=== PATIENT | male | born 1990 | race Two or more races ===

== ENCOUNTER 2018-03-22 20:47 | Emergency (ER) | payer OTHER ==
[2018-03-22 21:09] VITALS: RESP 20
--- NOTE | 2018-03-22 21:27 | XR ---
EXAMINATION TYPE: XR chest 2V DATE OF EXAM: 03/22/2018 COMPARISON: NONE HISTORY: Rib pain TECHNIQUE: Frontal and lateral views of the chest are obtained. FINDINGS: Heart and mediastinum are normal. Lungs are clear. Diaphragm is normal. Bony thorax is int act. IMPRESSION: Normal chest, no rib fracture seen.
--- NOTE | 2018-03-22 21:52 | ED ---
URI HPI - General Chief Complaint: Upper Respiratory Infection Stated Complaint: abd pain Time Seen by Provider: 03/22/18 21:06 Source: patient Mode of arrival: ambulatory Limitations: no limitations - History of Present Illness Initial Comments: This patient is a 27-year-old man who presents to be evaluated for a cough which is been going on for between 1 and 2 weeks, left-sided rib pain, and myalgias. Patient states that the person came on more than myalgias, which was followed by a cough, large nonproductive though occasionally with some dark yellow sputum, and then this was followed by the rib pains associated with cough. The pains are moderate, they get worse when he coughs, with certain movements and with pressing on the ribs. Patient has not noted fever or chills. No dyspnea. MD Complaint: cough, nasal congestion -: days(s) Severity: moderate Quality: aching Consistency: constant Improves With: nothing Worsens With: other - Related Data Home Medications Medication Instructions Recorded Confirmed Albuterol Inhaler [Ventolin Hfa 1 - 2 puff INHALATION RT-Q6H PRN 03/22/18 Inhaler] Budesonide/Formoterol Fumarate 1 puff INHALATION RT-BID PRN 03/22/18 03/22/18 [Symbicort 80-4.5 Mcg Inhaler] Previous Rx's Medication Instructions Recorded Albuterol Inhaler [Ventolin Hfa 1 - 2 puff INHALATION Q6HR PRN #1 03/22/18 Inhaler] inhaler Azithromycin [Zithromax Z-pack] 250 mg PO DIRECTED #6 tab 03/22/18 Promethazine 6.25MG/5Ml [Phenergan 5 ml PO Q4HR PRN #120 ml 03/22/18 Syrup] predniSONE 20 mg PO BID #8 tab 03/22/18 Allergies Allergy/AdvReac Type Severity Reaction Status Date / Time No Known Allergies Allergy Verified 03/22/18 21:08 Review of Systems ROS Statement: Those systems with pertinent positive or pertinent negative responses have been documented in the HPI. ROS Other: All systems not noted in ROS Statement are negative. Constitutional: Denies: fever, chills, weakness Respiratory: Reports: as per HPI, cough. Denies: dyspnea, wheezes, hemoptysis Cardiovascular: Reports: as per HPI, chest pain. Denies: palpitations, dyspnea on exertion, orthopnea Gastrointestinal: Denies: abdominal pain, nausea, vomiting, diarrhea Genitourinary: Denies: dysuria, hematuria Musculoskeletal: Reports: myalgia. Denies: back pain Skin: Denies: rash Neurological: Denies: headache, weakness, numbness, paresthesias Past Medical History Past Medical History: Asthma Additional Past Medical History / Comment(s): hep C History of Any Multi-Drug Resistant Organisms: None Reported Past Surgical History: Appendectomy Past Psychological History: No Psychological Hx Reported Smoking Status: Never smoker Past Alcohol Use History: None Reported Past Drug Use History: Marijuana General Exam Limitations: no limitations General appearance: alert, in no apparent distress Head exam: Present: atraumatic, normocephalic Eye exam: Present: normal appearance. Absent: scleral icterus, conjunctival injection ENT exam: Present: normal oropharynx Neck exam: Present: full ROM. Absent: lymphadenopathy Respiratory exam: Present: wheezes (Trace expiratory wheeze), chest wall tenderness. Absent: respiratory distress, rales, rhonchi, stridor, accessory muscle use, decreased breath sounds, prolonged expiratory Cardiovascular Exam: Present: regular rate, normal rhythm, normal heart sounds. Absent: systolic murmur, diastolic murmur, rubs, gallop GI/Abdominal exam: Present: soft. Absent: distended, tenderness, guarding, rebound, rigid, mass Extremities exam: Present: normal inspection, normal capillary refill. Absent: pedal edema, calf tenderness Back exam: Present: normal inspection. Absent: CVA tenderness (R), CVA tenderness (L) Neurological exam: Present: alert Skin exam: Present: warm, dry, intact, normal color. Absent: rash Course Vital Signs 03/22/18 03/22/18 20:50 21:01 Temperature 97.9 F Pulse Rate 81 Respiratory 18 20 Rate Blood Pressure 138/69 O2 Sat by Pulse 98 Oximetry Disposition Clinical Impression: Bronchitis Disposition: HOME SELF-CARE Condition: Good Instructions: Acute Bronchitis (ED) Prescriptions: Albuterol Inhaler [Ventolin Hfa Inhaler] 1 - 2 puff INHALATION Q6HR PRN #1 inhaler PRN Reason: Wheezing Azithromycin [Zithromax Z-pack] 250 mg PO DIRECTED #6 tab predniSONE 20 mg PO BID #8 tab Promethazine 6.25MG/5Ml [Phenergan Syrup] 5 ml PO Q4HR PRN #120 ml PRN Reason: Cough Is patient prescribed a controlled substance at d/c from ED?: No Referrals: Jamil Archibald MD [Primary Care Provider] - 1-2 days
[2018-03-22] MEDS ORDERED: IBUPROFEN 400 MG TAB PO STA (22:05)
[2018-03-22] MEDS ORDERED: predniSONE 20 MG TAB PO STA (22:05)
[2018-03-22 22:41] VITALS: BP 114/71; PULSE 78; TEMP 97.8
== END 2018-03-22 22:40 | disposition home or self-care (01) ==
LOC: EC 20:47
DX: J45.909 Unspecified asthma, uncomplicated (principal); R07.81 Pleurodynia; Z86.19 Personal history of other infectious and parasitic diseases
CPT/HCPCS: 71046; 99284; J7512

== ENCOUNTER 2018-03-27 16:46 | Emergency (ER) | payer OTHER ==
[2018-03-27 17:35] LABS: Appearance,Urine Turbid (Clear); Bacteria,Urine Rare /hpf; Bilirubin,Urine Negative (Negative); Blood,Urine Negative (Negative); Budding Yeast,Urine Many /hpf; Color,Urine Yellow; Glucose,Urine (UA) Negative (Negative); Ketones,Urine Negative (Negative); Leukocyte Esterase,Urine Negative (Negative); Mucus,Urine Rare /hpf; Nitrite,Urine Negative (Negative); PH, Urine 7.5 (5.0-8.0); Protein,Urine Negative (Negative); Specific Gravity,Urine 1.017 (1.001-1.035); Urobilinogen,Urine <2.0 mg/dL (<2.0); WBC,Urine 7 /hpf (0-5)
[2018-03-27] MEDS ORDERED: SODIUM CHLORIDE 0.9% 1,000 ML IV STA (17:40)
--- NOTE | 2018-03-27 18:43 | ED ---
General Adult HPI - General Chief complaint: Back Pain/Injury Stated complaint: kidney problem Time Seen by Provider: 03/27/18 17:32 Source: family, RN notes reviewed Mode of arrival: ambulatory Limitations: no limitations - History of Present Illness Initial comments: This is a 27-year-old male presents emergency department to complaint of right- sided flank pain. Patient states that has increased last few days. Patient states that he has multiple symptoms that is concerned may related to his hepatitis C. Patient is scheduled see a GI physician and infectious disease doctor for treatment for sepsis. Patient states that he did not use IV drug user states this is from Activity. Patient States That He Has Noticed Dark Urine States Has Been Burning with Urination. He Denies Any Hematuria. Patient Also States That He's Noticed Change in His Bowel Habits and States That His Stool Has Been Tarry in Nature. Patient Denies Any Nausea Vomiting. Denies Any Chest Pain or Shortness Breath. States Does Appear Fatigued and Run down. He States the Pain That He Hasn't His Right Side Does Not Seem to Be Related to Muscle Skeletal Pain. 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 - Related Data Home Medications Medication Instructions Recorded Confirmed Albuterol Inhaler [Ventolin Hfa 1 - 2 puff INHALATION RT-Q6H PRN 03/22/18 Inhaler] Budesonide/Formoterol Fumarate 1 puff INHALATION RT-BID PRN 03/22/18 03/22/18 [Symbicort 80-4.5 Mcg Inhaler] Previous Rx's Medication Instructions Recorded Albuterol Inhaler [Ventolin Hfa 1 - 2 puff INHALATION Q6HR PRN #1 03/22/18 Inhaler] inhaler Azithromycin [Zithromax Z-pack] 250 mg PO DIRECTED #6 tab 03/22/18 Promethazine 6.25MG/5Ml [Phenergan 5 ml PO Q4HR PRN #120 ml 03/22/18 Syrup] predniSONE 20 mg PO BID #8 tab 03/22/18 Ciprofloxacin HCl [Cipro] 500 mg PO Q12HR #14 tablet 03/27/18 Allergies Allergy/AdvReac Type Severity Reaction Status Date / Time No Known Allergies Allergy Verified 03/27/18 16:58 Review of Systems ROS Statement: Those systems with pertinent positive or pertinent negative responses have been documented in the HPI. ROS Other: All systems not noted in ROS Statement are negative. Past Medical History Past Medical History: Asthma Additional Past Medical History / Comment(s): hep C History of Any Multi-Drug Resistant Organisms: None Reported Past Surgical History: Appendectomy Past Psychological History: No Psychological Hx Reported Smoking Status: Never smoker Past Alcohol Use History: None Reported Past Drug Use History: Marijuana General Exam Limitations: no limitations General appearance: alert, in no apparent distress Head exam: Present: atraumatic, normocephalic, normal inspection Neck exam: Present: normal inspection, full ROM. Absent: tenderness, meningismus, lymphadenopathy Respiratory exam: Present: normal lung sounds bilaterally. Absent: respiratory distress, wheezes, rales, rhonchi, stridor Cardiovascular Exam: Present: regular rate, normal rhythm, normal heart sounds. Absent: systolic murmur, diastolic murmur, rubs, gallop, clicks GI/Abdominal exam: Present: soft, tenderness (Right upper quadrant moderate), normal bowel sounds. Absent: distended, guarding, rebound, rigid Back exam: Present: normal inspection, full ROM. Absent: tenderness, CVA tenderness (R), CVA tenderness (L), paraspinal tenderness, vertebral tenderness Neurological exam: Present: alert, oriented X3, CN II-XII intact, reflexes normal. Absent: motor sensory deficit Skin exam: Present: warm, dry, intact, normal color. Absent: rash Course Vital Signs 03/27/18 16:55 Temperature 98.0 F Pulse Rate 90 Respiratory 18 Rate Blood Pressure 118/76 O2 Sat by Pulse 97 Oximetry Medical Decision Making - Medical Decision Making 27-year-old male present emergency from for multiple complaints. Patient's found a urinary tract infection. Patient had a urine culture, GC and chlamydia testing. Patient does have elevated liver enzymes secondary to his hepatitis see diagnosis. He has close follow-up with GI and infectious disease. We discuss return parameters. - Lab Data Result diagrams: 03/27/18 17:59 03/27/18 17:59 Lab Results 03/27/18 03/27/18 03/27/18 Range/Units 17:11 17:59 17:59 WBC 6.4 (3.8-10.6) k/uL RBC 5.32 (4.30-5.90) m/uL Hgb 15.2 (13.0-17.5) gm/dL Hct 46.0 (39.0-53.0) % MCV 86.6 (80.0-100.0) fL MCH 28.5 (25.0-35.0) pg MCHC 33.0 (31.0-37.0) g/dL RDW 13.3 (11.5-15.5) % Plt Count 247 (150-450) k/uL Neutrophils % 58 % Lymphocytes % 29 % Monocytes % 5 % Eosinophils % 5 % Basophils % 0 % Neutrophils # 3.7 (1.3-7.7) k/uL Lymphocytes # 1.9 (1.0-4.8) k/uL Monocytes # 0.3 (0-1.0) k/uL Eosinophils # 0.3 (0-0.7) k/uL Basophils # 0.0 (0-0.2) k/uL PT (9.0-12.0) sec INR (<1.2) APTT (22.0-30.0) sec Sodium 140 (137-145) mmol/L Potassium 4.4 (3.5-5.1) mmol/L Chloride 105 (98-107) mmol/L Carbon Dioxide 25 (22-30) mmol/L Anion Gap 10 mmol/L BUN 16 (9-20) mg/dL Creatinine 0.88 (0.66-1.25) mg/dL Est GFR (CKD-EPI)AfAm >90 (>60 ml/min/1.73 sqM) Est GFR (CKD-EPI)NonAf >90 (>60 ml/min/1.73 sqM) Glucose 98 (74-99) mg/dL Calcium 9.8 (8.4-10.2) mg/dL Total Bilirubin 0.7 (0.2-1.3) mg/dL AST 69 H (17-59) U/L ALT 116 H (21-72) U/L Alkaline Phosphatase 42 (38-126) U/L Total Protein 7.9 (6.3-8.2) g/dL Albumin 4.5 (3.5-5.0) g/dL Amylase 67 (30-110) U/L Lipase 47 (23-300) U/L Urine Color Yellow Urine Appearance Turbid (Clear) Urine pH 7.5 (5.0-8.0) Ur Specific [place] 1.017 (1.001-1.035) Urine Protein Negative (Negative) Urine Glucose (UA) Negative (Negative) Urine Ketones Negative (Negative) Urine Blood Negative (Negative) Urine Nitrite Negative (Negative) Urine Bilirubin Negative (Negative) Urine Urobilinogen <2.0 (<2.0) mg/dL Ur Leukocyte Esterase Negative (Negative) Urine WBC 7 H (0-5) /hpf Urine WBC Clumps Few H (None) /hpf Urine Bacteria Rare H (None) /hpf Urine Mucus Rare H (None) /hpf Urine Yeast (Budding) Many H (None) /hpf Stool Occult Blood (Negative) 03/27/18 03/27/18 Range/Units 17:59 17:59 WBC (3.8-10.6) k/uL RBC (4.30-5.90) m/uL Hgb (13.0-17.5) gm/dL Hct (39.0-53.0) % MCV (80.0-100.0) fL MCH (25.0-35.0) pg MCHC (31.0-37.0) g/dL RDW (11.5-15.5) % Plt Count (150-450) k/uL Neutrophils % % Lymphocytes % % Monocytes % % Eosinophils % % Basophils % % Neutrophils # (1.3-7.7) k/uL Lymphocytes # (1.0-4.8) k/uL Monocytes # (0-1.0) k/uL Eosinophils # (0-0.7) k/uL Basophils # (0-0.2) k/uL PT 10.4 (9.0-12.0) sec INR 1.1 (<1.2) APTT 23.2 (22.0-30.0) sec Sodium (137-145) mmol/L Potassium (3.5-5.1) mmol/L Chloride (98-107) mmol/L Carbon Dioxide (22-30) mmol/L Anion Gap mmol/L BUN (9-20) mg/dL Creatinine (0.66-1.25) mg/dL Est GFR (CKD-EPI)AfAm (>60 ml/min/1.73 sqM) Est GFR (CKD-EPI)NonAf (>60 ml/min/1.73 sqM) Glucose (74-99) mg/dL Calcium (8.4-10.2) mg/dL Total Bilirubin (0.2-1.3) mg/dL AST (17-59) U/L ALT (21-72) U/L Alkaline Phosphatase (38-126) U/L Total Protein (6.3-8.2) g/dL Albumin (3.5-5.0) g/dL Amylase (30-110) U/L Lipase (23-300) U/L Urine Color Urine Appearance (Clear) Urine pH (5.0-8.0) Ur Specific [place] (1.001-1.035) Urine Protein (Negative) Urine Glucose (UA) (Negative) Urine Ketones (Negative) Urine Blood (Negative) Urine Nitrite (Negative) Urine Bilirubin (Negative) Urine Urobilinogen (<2.0) mg/dL Ur Leukocyte Esterase (Negative) Urine WBC (0-5) /hpf Urine WBC Clumps (None) /hpf Urine Bacteria (None) /hpf Urine Mucus (None) /hpf Urine Yeast (Budding) (None) /hpf Stool Occult Blood Negative (Negative) Disposition Clinical Impression: Hepatitis C, Flank pain, UTI (urinary tract infection) Disposition: HOME SELF-CARE Condition: Stable Instructions: Urinary Tract Infection in Men (ED) Additional Instructions: Please return to the Emergency Department if symptoms worsen or any other concerns. Prescriptions: Ciprofloxacin HCl [Cipro] 500 mg PO Q12HR #14 tablet Is patient prescribed a controlled substance at d/c from ED?: No Referrals: Jamil Archibald MD [Primary Care Provider] - 1-2 days Time of Disposition: 19:19
[2018-03-27 18:49] LABS: Basophils % (A) 0 %; Eosinophils # (A) 0.3 k/uL (0-0.7); Eosinophils % (A) 5 %; HGB 15.2 gm/dL (13.0-17.5); Lymphocytes # (A) 1.9 k/uL (1.0-4.8); Lymphocytes % (A) 29 %; MCH 28.5 pg (25.0-35.0); MCV 86.6 fL (80.0-100.0); Monocytes # (A) 0.3 k/uL (0-1.0); Monocytes % (A) 5 %; Neutrophils # (A) 3.7 k/uL (1.3-7.7); Neutrophils % (A) 58 %; Platelet Count 247 k/uL (150-450); RBC 5.32 m/uL (4.30-5.90); RDW 13.3 % (11.5-15.5); WBC 6.4 k/uL (3.8-10.6)
[2018-03-27 18:57] LABS: ALT 116 U/L (21-72); AST 69 U/L (17-59); Albumin 4.5 g/dL (3.5-5.0); Alkaline Phosphatase 42 U/L (38-126); Amylase 67 U/L (30-110); Anion Gap 10 mmol/L; Blood Urea Nitrogen 16 mg/dL (9-20); Calcium 9.8 mg/dL (8.4-10.2); Carbon Dioxide 25 mmol/L (22-30); Chloride 105 mmol/L (98-107); Glucose 98 mg/dL (74-99); Lipase 47 U/L (23-300); Potassium 4.4 mmol/L (3.5-5.1); Sodium 140 mmol/L (137-145); Total Bilirubin 0.7 mg/dL (0.2-1.3); Total Protein 7.9 g/dL (6.3-8.2)
[2018-03-27 19:02] LABS: INR 1.1 (<1.2); Partial Thromboplastin Time 23.2 sec (22.0-30.0); Prothrombin Time 10.4 sec (9.0-12.0)
[2018-03-27] MEDS ORDERED: cefTRIAXone 1,000 MG VIAL (IM USE) IM STA (19:14)
[2018-03-27] MEDS ORDERED: AZITHROMYCIN 250 MG TAB PO STA (19:16)
[2018-03-27 19:52] VITALS: BP 121/89; PULSE 84; RESP 17; TEMP 97.9
[2018-03-29 14:06] LABS: C. trachomatis,PCR Negative (Neg,Equiv); Chlamydia trachomatis Source Urine
[2018-03-29 14:39] LABS: N. gonorrhoeae,PCR Negative (Neg,Equiv); Neisseria Source Urine
== END 2018-03-27 19:35 | disposition home or self-care (01) ==
LOC: EC 16:46
DX: B19.20 Unspecified viral hepatitis C without hepatic coma (principal); N39.0 Urinary tract infection, site not specified; J45.909 Unspecified asthma, uncomplicated; Z90.49 Acquired absence of other specified parts of digestive tract
CPT/HCPCS: 36415; 80053; 81001; 82150; 82272; 83690; 85025; 85610; 85730; 87086; 87491; 87591; 96360; 96372; 99283

== ENCOUNTER → 2018-04-10 | Outpatient (CLI) | payer OTHER ==
--- NOTE | 2018-04-11 07:11 | CT ---
EXAMINATION TYPE: CT chest w con DATE OF EXAM: 04/10/2018 COMPARISON: Two-view chest x-ray March 22, 2018 HISTORY: c/o chest pain and pressure X 1 month. hx of asthma. Pleural scarring per order. CT DLP: 228.9 mGycm. Automated Exposure Control for Dose Reduction was Utilized. TECHNIQUE: CT scan of the thorax is performed following with IV Contrast, patient injected with 100 mL of Isovue 300. FINDINGS: LUNGS: The lungs are grossly clear, there is no concerning parenchymal mass or nodule identified. Sli ght motion artifact noted for reference axial image 54. There is no pleural effusion or pneumothorax seen. No significant distortion or fibrosis is present. No suspicious pleural thickening is seen. Th e tracheobronchial tree is patent. MEDIASTINUM: There are no greater than 1 cm hilar or mediastinal lymph nodes. No cardiomegaly or pe ricardial effusion is seen. OTHER: Bilateral gynecomastia is present axial image 30. A 1.2 cm splenule in splenic hilum axial rhianna ge 76 is noted. Within the liver there is 1.2 cm round hyperdense lesion right hepatic lobe axial rhianna ge 79. IMPRESSION: 1. No significant acute or chronic pulmonary process. 2. Incidental 1.2 cm right round hyperdense lesion favoring hemangioma but incompletely characterized on single phase study. Consider liver protocol contrast-enhanced MRI to further evaluate and charact erize.
== END ==
LOC: RADCTMAIN 18:07
PROVIDERS: ATTEND Family Medicine
DX: J94.8 Other specified pleural conditions (principal)
CPT/HCPCS: 71260; Q9967

== ENCOUNTER 2018-06-07 18:39 | Emergency (ER) | payer OTHER ==
[2018-06-07 18:45] VITALS: TEMP 98.1
[2018-06-07] MEDS ORDERED: IPRATROPIUM-ALBUTEROL 3 ML NEB INHALATION STA (18:50)
[2018-06-07] MEDS ORDERED: DEXAMETHASONE SOD PHOSPHATE 10 MG/ML 1 ML VIAL IM STA (18:50)
--- NOTE | 2018-06-07 19:16 | XR ---
EXAMINATION TYPE: XR chest 2V DATE OF EXAM: 06/07/2018 COMPARISON: 03/22/2018 HISTORY: Difficulty breathing TECHNIQUE: Frontal and lateral views of the chest are obtained. FINDINGS: Heart and mediastinum are normal. Lungs are clear. Diaphragm is normal. Bony thorax is int act. IMPRESSION: Normal chest. No change.
--- NOTE | 2018-06-07 19:18 | ED ---
General Adult HPI - General Chief complaint: Shortness of Breath Stated complaint: MIRTHA Time Seen by Provider: 06/07/18 18:46 Source: patient, RN notes reviewed, old records reviewed Mode of arrival: ambulatory Limitations: no limitations - History of Present Illness Initial comments: 27-year-old male presenting for evaluation of cough and dyspnea. Patient's cough has been productive of yellow-brown sputum. He has a known history of asthma and has been out of his albuterol. Symptoms have progressed over the past several days but worse significantly worse today. Patient denies fever or chills. Denies chest pain. Patient has been admitted with asthma, never to the ICU, never intubated. He normally is well controlled with albuterol every several days. - Related Data Home Medications Medication Instructions Recorded Confirmed Albuterol Inhaler [Ventolin Hfa 1 - 2 puff INHALATION RT-Q6H PRN 03/22/18 Inhaler] Doxycycline [Vibramycin] 100 mg PO BID 06/07/18 06/07/18 Escitalopram Oxalate [Lexapro] 20 mg PO HS 06/07/18 06/07/18 Previous Rx's Medication Instructions Recorded Albuterol Inhaler [Ventolin Hfa 1 - 2 puff INHALATION Q4HR PRN #1 06/07/18 Inhaler] inhaler predniSONE 50 mg PO DAILY #5 tab 06/07/18 Allergies Allergy/AdvReac Type Severity Reaction Status Date / Time No Known Allergies Allergy Verified 06/07/18 19:25 Review of Systems ROS Statement: Those systems with pertinent positive or pertinent negative responses have been documented in the HPI. ROS Other: All systems not noted in ROS Statement are negative. Past Medical History Past Medical History: Asthma Additional Past Medical History / Comment(s): hep C History of Any Multi-Drug Resistant Organisms: None Reported Past Surgical History: Appendectomy Past Psychological History: No Psychological Hx Reported Smoking Status: Never smoker Past Alcohol Use History: None Reported Past Drug Use History: Marijuana General Exam Limitations: no limitations General appearance: alert, in no apparent distress Head exam: Present: atraumatic, normocephalic Eye exam: Present: normal appearance, PERRL ENT exam: Present: normal exam Neck exam: Present: normal inspection. Absent: tenderness, meningismus Respiratory exam: Present: wheezes. Absent: respiratory distress, rhonchi Cardiovascular Exam: Present: regular rate, normal rhythm GI/Abdominal exam: Present: soft. Absent: distended, tenderness Extremities exam: Present: normal inspection, normal capillary refill. Absent: pedal edema Neurological exam: Present: alert, oriented X3 Psychiatric exam: Present: normal affect, normal mood Skin exam: Present: warm, dry, intact. Absent: cyanosis, diaphoretic Course Vital Signs 06/07/18 18:43 Temperature 98.1 F Pulse Rate 79 Respiratory 24 Rate Blood Pressure 124/75 O2 Sat by Pulse 97 Oximetry Medical Decision Making - Medical Decision Making 27 yo female presenting with dyspnea. History of asthma, out of medication. Patient had a productive cough with brown sputum, x-ray obtained, negative for focal pneumonia. No acute findings. After DuoNeb, patient is feeling better. He will be discharged on short course of oral steroids and refill of albuterol inhaler. Please return with worsening or changing symptoms, follow-up with primary care physician. Disposition Clinical Impression: Asthma with exacerbation Disposition: HOME SELF-CARE Condition: Good Instructions: Asthma (ED) Prescriptions: Albuterol Inhaler [Ventolin Hfa Inhaler] 1 - 2 puff INHALATION Q4HR PRN #1 inhaler PRN Reason: Shortness Of Breath predniSONE 50 mg PO DAILY #5 tab Is patient prescribed a controlled substance at d/c from ED?: No Referrals: Jamil Archibald MD [Primary Care Provider] - 1-2 days Time of Disposition: 19:28
[2018-06-07 19:51] VITALS: BP 122/84; PULSE 84; RESP 20
== END 2018-06-07 19:40 | disposition home or self-care (01) ==
LOC: EC 18:39
DX: J45.901 Unspecified asthma with (acute) exacerbation (principal); Z86.19 Personal history of other infectious and parasitic diseases; Z79.899 Other long term (current) drug therapy
CPT/HCPCS: 94640; 71046; 99285; 96372; J1100

== ENCOUNTER 2018-07-09 16:08 | Emergency (ER) | payer OTHER ==
[2018-07-09 16:15] VITALS: RESP 18
[2018-07-09] MEDS ORDERED: IPRATROPIUM-ALBUTEROL 3 ML NEB INHALATION STA (16:51)
[2018-07-09] MEDS ORDERED: SODIUM CHLORIDE 0.9% 500 ML 500 ML IV STA (16:51)
[2018-07-09] MEDS ORDERED: methylPREDNISolone SOD SUCCI 125 MG/2 ML VIAL IV STA (16:51)
[2018-07-09] MEDS ORDERED: SODIUM CHLORIDE 0.9% 1,000 ML IV STA (16:51)
[2018-07-09] MEDS ORDERED: MAG HYDROX/AL HYDROX/SIMETH 30 ML, HYOSCYAMINE ELIXIR 10 ML, CIMETIDINE HCL 300 MG, LID... PO STA ×4 (16:52)
--- NOTE | 2018-07-09 17:02 | ED ---
General Adult HPI - General Chief complaint: Shortness of Breath Stated complaint: MIRTHA Time Seen by Provider: 07/09/18 16:26 Source: patient, RN notes reviewed Mode of arrival: ambulatory Limitations: no limitations - History of Present Illness Initial comments: 28-year-old male presents emergency Department with chief complaint of abdominal pain or shortness of breath. Patient states that he is bulimic states that his never discussed this with his primary care physician states that he's been purging more lately. Patient states that he feels pain from his upper stomach to his throat. Patient states she's also been using his albuterol inhaler more she's felt short of breath and he does have a history of asthma. Patient denies any dysuria, hematuria, diarrhea constipation. Patient does not take any antacids currently. Patient states she has suffered from bulimia for last 5 years. - Related Data Home Medications Medication Instructions Recorded Confirmed Escitalopram Oxalate [Lexapro] 20 mg PO HS 06/07/18 07/09/18 Previous Rx's Medication Instructions Recorded Albuterol Inhaler [Ventolin Hfa 1 - 2 puff INHALATION Q4HR PRN #1 06/07/18 Inhaler] inhaler Albuterol Sulfate [Proair Hfa] 1 - 2 puff INHALATION Q4HR PRN #1 07/09/18 inhaler Omeprazole 40 mg PO DAILY #14 capsule. 07/09/18 predniSONE 50 mg PO DAILY #3 tab 07/09/18 Allergies Allergy/AdvReac Type Severity Reaction Status Date / Time No Known Allergies Allergy Verified 07/09/18 17:02 Review of Systems ROS Statement: Those systems with pertinent positive or pertinent negative responses have been documented in the HPI. ROS Other: All systems not noted in ROS Statement are negative. Past Medical History Past Medical History: Asthma Additional Past Medical History / Comment(s): hep C, bulemia History of Any Multi-Drug Resistant Organisms: None Reported Past Surgical History: Appendectomy Past Psychological History: Depression Smoking Status: Never smoker Past Alcohol Use History: None Reported Past Drug Use History: Marijuana General Exam Limitations: no limitations General appearance: alert, in no apparent distress Head exam: Present: atraumatic, normocephalic, normal inspection Eye exam: Present: normal appearance, PERRL, EOMI. Absent: scleral icterus, conjunctival injection, periorbital swelling ENT exam: Present: mucous membranes moist, TM's normal bilaterally, normal external ear exam. Absent: normal exam, normal oropharynx (Erythema noted posterior pharynx) Neck exam: Present: normal inspection, full ROM. Absent: tenderness, meningismus, lymphadenopathy Respiratory exam: Present: wheezes. Absent: normal lung sounds bilaterally, respiratory distress, rales, rhonchi, stridor Cardiovascular Exam: Present: regular rate, normal rhythm, normal heart sounds. Absent: systolic murmur, diastolic murmur, rubs, gallop, clicks GI/Abdominal exam: Present: soft, tenderness (Epigastric, left upper quadrant), normal bowel sounds. Absent: distended, guarding, rebound, rigid Back exam: Absent: CVA tenderness (R), CVA tenderness (L) Skin exam: Present: warm, dry, intact, normal color. Absent: rash Course Vital Signs 07/09/18 07/09/18 07/09/18 16:13 17:34 17:41 Temperature 99.6 F Pulse Rate 90 83 86 Respiratory 18 Rate Blood Pressure 113/65 O2 Sat by Pulse 96 Oximetry Medical Decision Making - Medical Decision Making 28-year-old male presented from it for multiple complaints. Patient had chest x -ray, lab work. Patient was given breathing treatment which has helped. Patient states that his voice is raspy again bowel GI cocktail initially did help. Patient is advised to purchase Mylanta, was started on omeprazole. Patient does have bulimia,, asthma exacerbation. Patient was likely has esophagitis related to his bulimia. - Lab Data Result diagrams: 07/09/18 17:15 07/09/18 17:15 Lab Results 07/09/18 07/09/18 Range/Units 17:15 17:15 WBC 8.8 (3.8-10.6) k/uL RBC 5.58 (4.30-5.90) m/uL Hgb 16.2 (13.0-17.5) gm/dL Hct 48.3 (39.0-53.0) % MCV 86.6 (80.0-100.0) fL MCH 29.1 (25.0-35.0) pg MCHC 33.6 (31.0-37.0) g/dL RDW 13.4 (11.5-15.5) % Plt Count 259 (150-450) k/uL Neutrophils % 60 % Lymphocytes % 26 % Monocytes % 5 % Eosinophils % 6 % Basophils % 1 % Neutrophils # 5.2 (1.3-7.7) k/uL Lymphocytes # 2.3 (1.0-4.8) k/uL Monocytes # 0.4 (0-1.0) k/uL Eosinophils # 0.5 (0-0.7) k/uL Basophils # 0.1 (0-0.2) k/uL Sodium 139 (137-145) mmol/L Potassium 4.4 (3.5-5.1) mmol/L Chloride 103 (98-107) mmol/L Carbon Dioxide 28 (22-30) mmol/L Anion Gap 8 mmol/L BUN 13 (9-20) mg/dL Creatinine 0.84 (0.66-1.25) mg/dL Est GFR (CKD-EPI)AfAm >90 (>60 ml/min/1.73 sqM) Est GFR (CKD-EPI)NonAf >90 (>60 ml/min/1.73 sqM) Glucose 104 H (74-99) mg/dL Calcium 10.0 (8.4-10.2) mg/dL Magnesium 2.2 (1.6-2.3) mg/dL Total Bilirubin 0.7 (0.2-1.3) mg/dL AST 60 H (17-59) U/L ALT 117 H (21-72) U/L Alkaline Phosphatase 46 (38-126) U/L Total Protein 8.0 (6.3-8.2) g/dL Albumin 4.6 (3.5-5.0) g/dL Disposition Clinical Impression: Bulimia, Esophagitis, Asthma exacerbation Disposition: HOME SELF-CARE Condition: Stable Instructions: Asthma (ED) Additional Instructions: Please return to the Emergency Department if symptoms worsen or any other concerns. Prescriptions: Albuterol Sulfate [Proair Hfa] 1 - 2 puff INHALATION Q4HR PRN #1 inhaler PRN Reason: difficulty in breathing Omeprazole 40 mg PO DAILY #14 capsule. predniSONE 50 mg PO DAILY #3 tab Is patient prescribed a controlled substance at d/c from ED?: No Referrals: Jamil Archibald MD [Primary Care Provider] - 1-2 days Time of Disposition: 19:50
[2018-07-09 18:03] LABS: Basophils # (A) 0.1 k/uL (0-0.2); Basophils % (A) 1 %; Eosinophils # (A) 0.5 k/uL (0-0.7); Eosinophils % (A) 6 %; HCT 48.3 % (39.0-53.0); HGB 16.2 gm/dL (13.0-17.5); Lymphocytes # (A) 2.3 k/uL (1.0-4.8); Lymphocytes % (A) 26 %; MCH 29.1 pg (25.0-35.0); MCHC 33.6 g/dL (31.0-37.0); MCV 86.6 fL (80.0-100.0); Mean Platelet Volume 7.4; Monocytes # (A) 0.4 k/uL (0-1.0); Monocytes % (A) 5 %; Neutrophils # (A) 5.2 k/uL (1.3-7.7); Neutrophils % (A) 60 %; Platelet Count 259 k/uL (150-450); RBC 5.58 m/uL (4.30-5.90); RDW 13.4 % (11.5-15.5); WBC 8.8 k/uL (3.8-10.6)
[2018-07-09 18:24] LABS: ALT 117 U/L (21-72); AST 60 U/L (17-59); Albumin 4.6 g/dL (3.5-5.0); Alkaline Phosphatase 46 U/L (38-126); Anion Gap 8 mmol/L; Blood Urea Nitrogen 13 mg/dL (9-20); Carbon Dioxide 28 mmol/L (22-30); Chloride 103 mmol/L (98-107); Glucose 104 mg/dL (74-99); Magnesium 2.2 mg/dL (1.6-2.3); Potassium 4.4 mmol/L (3.5-5.1); Sodium 139 mmol/L (137-145); Total Bilirubin 0.7 mg/dL (0.2-1.3)
--- NOTE | 2018-07-09 19:51 | XR ---
EXAMINATION: XR chest 2V DATE AND TIME: 07/09/2018 5:55 PM CLINICAL INDICATION: PHH; difficulty breathing TECHNIQUE: Departmental protocol COMPARISON: 06/07/2018 FINDINGS: The lungs are clear. The pleural spaces are negative. The cardiac silhouette is not enlarged. The remainder of the mediastinal silhouette is unremarkable. The skeletal structures and soft tissues are negative for acute findings. IMPRESSION: NO ACUTE PROCESS.
[2018-07-09 20:05] VITALS: BP 127/78; PULSE 73; TEMP 98.6
== END 2018-07-09 20:05 | disposition home or self-care (01) ==
LOC: EC 16:08
DX: J45.901 Unspecified asthma with (acute) exacerbation (principal); K20.9 Esophagitis, unspecified; F50.2 Bulimia nervosa; F32.9 Major depressive disorder, single episode, unspecified; Z86.19 Personal history of other infectious and parasitic diseases; Z79.899 Other long term (current) drug therapy
CPT/HCPCS: 36415; 94640; 80053; 83735; 85025; 71046; 99285; 96374; 96361; J2930

== ENCOUNTER 2018-08-31 17:20 | Emergency (ER) | payer OTHER ==
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
[2018-08-31 17:36] LABS: Glucose,Whole Blood 117 mg/dL (75-99)
[2018-08-31 17:41] LABS: Basophils # (A) 0.1 k/uL (0-0.2); Basophils % (A) 1 %; Eosinophils # (A) 0.6 k/uL (0-0.7); Eosinophils % (A) 7 %; HCT 47.3 % (39.0-53.0); Lymphocytes # (A) 3.1 k/uL (1.0-4.8); Lymphocytes % (A) 34 %; MCH 29.4 pg (25.0-35.0); MCHC 33.7 g/dL (31.0-37.0); MCV 87.1 fL (80.0-100.0); Mean Platelet Volume 6.6; Monocytes # (A) 0.6 k/uL (0-1.0); Monocytes % (A) 6 %; Neutrophils # (A) 4.6 k/uL (1.3-7.7); Neutrophils % (A) 50 %; Platelet Count 275 k/uL (150-450); RBC 5.44 m/uL (4.30-5.90); RDW 13.4 % (11.5-15.5); WBC 9.2 k/uL (3.8-10.6)
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
--- NOTE | 2018-08-31 17:47 | XR ---
EXAMINATION TYPE: XR chest 1V portable DATE OF EXAM: 08/31/2018 COMPARISON: 07/09/2018 HISTORY: Chest pain TECHNIQUE: Single frontal view of the chest is obtained. FINDINGS: Heart and mediastinum are normal. Lungs are clear. Diaphragm is normal. Bony thorax appear s normal. IMPRESSION: Normal chest. No change.
[2018-08-31 17:48] LABS: Partial Thromboplastin Time 22.8 sec (22.0-30.0); Prothrombin Time 10.6 sec (9.0-12.0)
[2018-08-31 17:52] LABS: ALT 111 U/L (21-72); AST 57 U/L (17-59); Albumin 4.3 g/dL (3.5-5.0); Alkaline Phosphatase 44 U/L (38-126); Amylase 56 U/L (30-110); Anion Gap 13 mmol/L; Blood Urea Nitrogen 10 mg/dL (9-20); Calcium 9.1 mg/dL (8.4-10.2); Carbon Dioxide 20 mmol/L (22-30); Chloride 108 mmol/L (98-107); Glucose 120 mg/dL (74-99); Lipase 47 U/L (23-300); Potassium 4.3 mmol/L (3.5-5.1); Sodium 141 mmol/L (137-145); Total Bilirubin 0.5 mg/dL (0.2-1.3); Total Protein 7.4 g/dL (6.3-8.2)
[2018-08-31 17:55] LABS: Creatine Kinase 153 U/L (55-170)
[2018-08-31 18:00] LABS: Alcohol 197 mg/dL
[2018-08-31] MEDS ORDERED: SODIUM CHLORIDE 0.9% 1,000 ML IV STA ×2 (18:06→18:33)
[2018-08-31 18:09] LABS: Creatine Kinase MB 1.1 ng/mL (0.0-2.4); Troponin I <0.012 ng/mL (0.000-0.034)
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
[2018-08-31 18:31] LABS: Appearance,Urine Clear (Clear); Bilirubin,Urine Negative (Negative); Blood,Urine Negative (Negative); Color,Urine Colorless; Glucose,Urine (UA) Negative (Negative); Ketones,Urine Negative (Negative); Leukocyte Esterase,Urine Negative (Negative); Nitrite,Urine Negative (Negative); PH, Urine 5.5 (5.0-8.0); Protein,Urine Negative (Negative); Specific Gravity,Urine 1.007 (1.001-1.035); Urobilinogen,Urine <2.0 mg/dL (<2.0)
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
[2018-08-31 18:37] LABS: Phencyclidine Screen,Urine Not Detected (NotDetected)
[2018-08-31] MEDS ORDERED: KETOROLAC 30 MG/ML 1 ML VIAL IVP STA (19:06)
[2018-08-31 20:13] VITALS: BP 107/92; PULSE 96; RESP 16; TEMP 98
[2018-09-02 10:43] LABS: Cocaine Screen,Urine Not Detected (NotDetected)
[2018-09-02 10:47] LABS: Amphetamine Screen,Urine Not Detected (NotDetected); Barbiturate Screen,Urine Not Detected (NotDetected); Benzodiazepines Screen,Urine Not Detected (NotDetected); Methadone Screen, Urine Not Detected (NotDetected); Opiate Screen,Urine Not Detected (NotDetected); Oxycodone Screen, Urine Not Detected (NotDetected); Tricyclic Antidepressant,Urine Not Detected (NotDetected)
[2018-09-02 10:48] LABS: Urn Cannabinoid Scrn Detected (NotDetected)
== END 2018-08-31 20:05 | disposition home or self-care (01) ==
LOC: EC 17:20
DX: S00.81XA Abrasion of other part of head, initial encounter (principal); S50.311A Abrasion of right elbow, initial encounter; S80.212A Abrasion, left knee, initial encounter; F10.129 Alcohol abuse with intoxication, unspecified; F32.9 Major depressive disorder, single episode, unspecified; F41.9 Anxiety disorder, unspecified; Z79.899 Other long term (current) drug therapy; Y04.0XXA Assault by unarmed brawl or fight, initial encounter; V03.99XA Pedestrian with other conveyance injured in collision with car, pick-up truck or van, unspecified whether traffic or nontraffic accident, initial encounter; Y92.029 Unspecified place in mobile home as the place of occurrence of the external cause
CPT/HCPCS: 99291; 96374; 96360; 96361; 36415; 86900; 86901; 80053; 82150; 82550; 82553; 83605; 83690; 84484; 85025; 85610; 85730; 86850; 81003; 80306; 80320; 72170; 71045; 72125; 70486; 70450; 71260; 74177; J1885; Q9967

== ENCOUNTER 2018-09-24 14:05 | Emergency (ER) | payer OTHER ==
[2018-09-24 14:09] VITALS: TEMP 98.3
[2018-09-24] MEDS ORDERED: ONDANSETRON 4 MG ODT STARTER PACK 2 TAB BTL PO STA (14:43)
[2018-09-24] MEDS ORDERED: IPRATROPIUM-ALBUTEROL 3 ML NEB INHALATION STA (14:50)
[2018-09-24] MEDS ORDERED: methylPREDNISolone SOD SUCCI 125 MG/2 ML VIAL IV STA (14:50)
[2018-09-24] MEDS ORDERED: MAGNESIUM SULFATE-D5W PMX 1 GM in DEXTROSE/WATER 1 100ML.BAG IVPB STA (14:50)
[2018-09-24] MEDS ORDERED: SODIUM CHLORIDE 0.9% 1,000 ML IV STA (14:50)
--- NOTE | 2018-09-24 14:53 | ED ---
SOB HPI - General Chief Complaint: Shortness of Breath Stated Complaint: Pneumonia Time Seen by Provider: 09/24/18 14:31 Source: patient, RN notes reviewed, old records reviewed Mode of arrival: ambulatory Limitations: no limitations - History of Present Illness Initial Comments: This is a 28-year-old male with history of asthma presents emergency room today for evaluation for difficulty breathing. Patient was seen in the emergency room 2 days ago diagnosed with asthma exacerbation and pneumonia. She he has been taking doxycycline for the past 2 days but has not been able to receive the prednisone as the pharmacy was out of this. Patient reports his been using his albuterol every 2 hours with minimal relief of symptoms. Patient states that he has asthma exacerbations a few times a year. - Related Data Home Medications Medication Instructions Recorded Confirmed Escitalopram Oxalate [Lexapro] 20 mg PO HS 06/07/18 09/24/18 Albuterol Nebulized [Ventolin 2.5 mg INHALATION RT-Q6H PRN 09/24/18 09/24/18 Nebulized] Previous Rx's Medication Instructions Recorded Albuterol Inhaler [Ventolin Hfa 1 - 2 puff INHALATION RT-Q6H PRN 09/22/18 Inhaler] #1 inhaler Ipratropium-Albuterol Nebulize 3 ml INHALATION QID #30 neb 09/24/18 [Duoneb 0.5 mg-3 mg/3 ml Soln] Allergies Allergy/AdvReac Type Severity Reaction Status Date / Time No Known Allergies Allergy Verified 09/24/18 14:44 Review of Systems ROS Statement: Those systems with pertinent positive or pertinent negative responses have been documented in the HPI. ROS Other: All systems not noted in ROS Statement are negative. Past Medical History Past Medical History: Asthma, Pneumonia Additional Past Medical History / Comment(s): hep C, bulemia History of Any Multi-Drug Resistant Organisms: None Reported Past Surgical History: Appendectomy Past Psychological History: Depression Smoking Status: Never smoker Past Alcohol Use History: None Reported Past Drug Use History: Marijuana General Exam - General Exam Comments Initial Comments: 28-year-old male. He appears in moderate discomfort. Limitations: no limitations General appearance: alert, in no apparent distress Head exam: Present: atraumatic, normocephalic, normal inspection Eye exam: Present: normal appearance ENT exam: Present: normal exam, mucous membranes moist Neck exam: Present: normal inspection. Absent: tenderness, meningismus, lymphadenopathy Respiratory exam: Present: wheezes, rhonchi. Absent: normal lung sounds bilaterally, respiratory distress, rales, stridor Cardiovascular Exam: Present: regular rate, normal rhythm, normal heart sounds. Absent: systolic murmur, diastolic murmur, rubs, gallop, clicks GI/Abdominal exam: Present: soft, normal bowel sounds. Absent: distended, tenderness, guarding, rebound, rigid Extremities exam: Present: normal inspection, full ROM, normal capillary refill. Absent: tenderness, pedal edema, joint swelling, calf tenderness Back exam: Present: normal inspection Neurological exam: Present: alert, oriented X3, CN II-XII intact Psychiatric exam: Present: normal affect, normal mood Skin exam: Present: warm, dry, intact, normal color. Absent: rash Course Vital Signs 09/24/18 09/24/18 09/24/18 14:06 15:27 15:31 Temperature 98.3 F Pulse Rate 77 97 Respiratory 18 18 Rate Blood Pressure 120/89 O2 Sat by Pulse 97 Oximetry 09/24/18 09/24/18 15:44 17:06 Temperature Pulse Rate 99 87 Respiratory 16 Rate Blood Pressure 130/85 O2 Sat by Pulse 97 Oximetry Medical Decision Making - Medical Decision Making Patient is a 28-year-old male who presents today for reevaluation for asthma exacerbation. Patient is given IV fluids labwork obtained. Started on Solu- Medrol and magnesium sulfate. He did have significant rhonchi wheezing noted. His vital signs were stable. Patient had significant improvement after double DuoNeb treatment and medications. Patient chest x-ray is normal. He is being treated for bronchitis and "pneumonia" from his ER visit 2 days ago. He's been taking doxycycline. He has not been taking his steroids. I discussed the importance of taking the steroids with the Patient. Patient will be discharged at this time with close follow-up with PCP and pulmonology. Patient states he does wake appreciably threatening. Discussed that he needs further treatment a nd continue to see his PCP for these significant asthma exacerbation. Patient agrees to treatment plan will light. Return parameters were discussed. Discharged with 1 by mouth pill for steroids until being get his prescription completed tomorrow at the pharmacy from his last ER visit. - Lab Data Result diagrams: 09/24/18 15:09 09/24/18 15:09 Lab Results 09/24/18 09/24/18 09/24/18 Range/Units 15:09 15:09 15:09 WBC 7.5 (3.8-10.6) k/uL RBC 5.20 (4.30-5.90) m/uL Hgb 15.1 (13.0-17.5) gm/dL Hct 45.2 (39.0-53.0) % MCV 86.9 (80.0-100.0) fL MCH 29.1 (25.0-35.0) pg MCHC 33.5 (31.0-37.0) g/dL RDW 14.7 (11.5-15.5) % Plt Count 272 (150-450) k/uL Neutrophils % 63 % Lymphocytes % 22 % Monocytes % 6 % Eosinophils % 7 % Basophils % 1 % Neutrophils # 4.7 (1.3-7.7) k/uL Lymphocytes # 1.6 (1.0-4.8) k/uL Monocytes # 0.4 (0-1.0) k/uL Eosinophils # 0.5 (0-0.7) k/uL Basophils # 0.0 (0-0.2) k/uL PT 9.8 (9.0-12.0) sec INR 0.9 (<1.2) APTT 23.2 (22.0-30.0) sec Sodium 141 (137-145) mmol/L Potassium 4.2 (3.5-5.1) mmol/L Chloride 107 (98-107) mmol/L Carbon Dioxide 26 (22-30) mmol/L Anion Gap 8 mmol/L BUN 19 (9-20) mg/dL Creatinine 0.77 (0.66-1.25) mg/dL Est GFR (CKD-EPI)AfAm >90 (>60 ml/min/1.73 sqM) Est GFR (CKD-EPI)NonAf >90 (>60 ml/min/1.73 sqM) Glucose 86 (74-99) mg/dL Calcium 9.6 (8.4-10.2) mg/dL Magnesium 2.0 (1.6-2.3) mg/dL Total Bilirubin 0.5 (0.2-1.3) mg/dL AST 56 (17-59) U/L ALT 105 H (21-72) U/L Alkaline Phosphatase 57 (38-126) U/L Troponin I (0.000-0.034) ng/mL Total Protein 7.0 (6.3-8.2) g/dL Albumin 3.9 (3.5-5.0) g/dL 09/24/18 Range/Units 15:09 WBC (3.8-10.6) k/uL RBC (4.30-5.90) m/uL Hgb (13.0-17.5) gm/dL Hct (39.0-53.0) % MCV (80.0-100.0) fL MCH (25.0-35.0) pg MCHC (31.0-37.0) g/dL RDW (11.5-15.5) % Plt Count (150-450) k/uL Neutrophils % % Lymphocytes % % Monocytes % % Eosinophils % % Basophils % % Neutrophils # (1.3-7.7) k/uL Lymphocytes # (1.0-4.8) k/uL Monocytes # (0-1.0) k/uL Eosinophils # (0-0.7) k/uL Basophils # (0-0.2) k/uL PT (9.0-12.0) sec INR (<1.2) APTT (22.0-30.0) sec Sodium (137-145) mmol/L Potassium (3.5-5.1) mmol/L Chloride (98-107) mmol/L Carbon Dioxide (22-30) mmol/L Anion Gap mmol/L BUN (9-20) mg/dL Creatinine (0.66-1.25) mg/dL Est GFR (CKD-EPI)AfAm (>60 ml/min/1.73 sqM) Est GFR (CKD-EPI)NonAf (>60 ml/min/1.73 sqM) Glucose (74-99) mg/dL Calcium (8.4-10.2) mg/dL Magnesium (1.6-2.3) mg/dL Total Bilirubin (0.2-1.3) mg/dL AST (17-59) U/L ALT (21-72) U/L Alkaline Phosphatase (38-126) U/L Troponin I <0.012 (0.000-0.034) ng/mL Total Protein (6.3-8.2) g/dL Albumin (3.5-5.0) g/dL 09/24/18 16:22 EKG shows normal sinus rhythm normal EKG. Ventricular rate of 90 bpm. OR interval is 136 ms. QS episcopal 90 ms. QT QTC 364/445 ms. - Radiology Data Radiology results: report reviewed Normal chest x-ray Disposition Clinical Impression: Asthma exacerbation Disposition: HOME SELF-CARE Condition: Good Instructions (If sedation given, give patient instructions): Asthma (ED), Acute Bronchitis (ED) Additional Instructions: Patient advised to follow up with PCP and pulmonology. Take steroids as pr eviously prescribed. Patient is to return to ED if any alarming signs or symptoms occur. Prescriptions: Ipratropium-Albuterol Nebulize [Duoneb 0.5 mg-3 mg/3 ml Soln] 3 ml INHALATION QID #30 neb Is patient prescribed a controlled substance at d/c from ED?: No Referrals: Jamil Archibald MD [Primary Care Provider] - 1-2 days Time of Disposition: 17:07
[2018-09-24 15:26] LABS: Basophils % (A) 1 %; Eosinophils # (A) 0.5 k/uL (0-0.7); Eosinophils % (A) 7 %; HCT 45.2 % (39.0-53.0); HGB 15.1 gm/dL (13.0-17.5); Lymphocytes # (A) 1.6 k/uL (1.0-4.8); Lymphocytes % (A) 22 %; MCH 29.1 pg (25.0-35.0); MCHC 33.5 g/dL (31.0-37.0); MCV 86.9 fL (80.0-100.0); Mean Platelet Volume 7.4; Monocytes # (A) 0.4 k/uL (0-1.0); Monocytes % (A) 6 %; Neutrophils # (A) 4.7 k/uL (1.3-7.7); Neutrophils % (A) 63 %; Platelet Count 272 k/uL (150-450); RDW 14.7 % (11.5-15.5); WBC 7.5 k/uL (3.8-10.6)
[2018-09-24 15:32] LABS: INR 0.9 (<1.2); Partial Thromboplastin Time 23.2 sec (22.0-30.0); Prothrombin Time 9.8 sec (9.0-12.0)
[2018-09-24 15:33] LABS: ALT 105 U/L (21-72); AST 56 U/L (17-59); Albumin 3.9 g/dL (3.5-5.0); Alkaline Phosphatase 57 U/L (38-126); Anion Gap 8 mmol/L; Blood Urea Nitrogen 19 mg/dL (9-20); Calcium 9.6 mg/dL (8.4-10.2); Carbon Dioxide 26 mmol/L (22-30); Chloride 107 mmol/L (98-107); Glucose 86 mg/dL (74-99); Potassium 4.2 mmol/L (3.5-5.1); Sodium 141 mmol/L (137-145); Total Bilirubin 0.5 mg/dL (0.2-1.3)
--- NOTE | 2018-09-24 16:27 | XR ---
EXAMINATION TYPE: XR chest 2V DATE OF EXAM: 09/24/2018 COMPARISON: 09/22/2018 HISTORY: Chest pain TECHNIQUE: Frontal and lateral views of the chest are obtained. FINDINGS: There is no focal air space opacity. No evidence for pneumothorax. No pleural effusion. The cardiac silhouette size is within normal limits. The osseous structures are grossly intact. IMPRESSION: 1. No acute cardiopulmonary process.
[2018-09-24 17:07] VITALS: BP 130/85; PULSE 87; RESP 16
[2018-09-24] MEDS ORDERED: predniSONE 50 MG TAB PO STA (17:07)
== END 2018-09-24 17:32 | disposition home or self-care (01) ==
LOC: EC 14:05
DX: J45.901 Unspecified asthma with (acute) exacerbation (principal); F32.9 Major depressive disorder, single episode, unspecified; Z86.19 Personal history of other infectious and parasitic diseases; Z79.899 Other long term (current) drug therapy; Z53.8 Procedure and treatment not carried out for other reasons
CPT/HCPCS: 36415; 94640; 93005; 80053; 83735; 84484; 85025; 85610; 85730; 71046; 99285; 96365; 96375; 96361; J2930; J3475; J7512

== ENCOUNTER 2021-11-16 15:52 | Emergency (ER) | payer OTHER ==
[2021-11-16 16:34] VITALS: BP 129/84; PULSE 82; RESP 22; TEMP 98.2
--- NOTE | 2021-11-16 17:04 | XR ---
EXAMINATION TYPE: XR chest 2V DATE OF EXAM: 11/16/2021 COMPARISON: Chest x-ray September 24, 2018 HISTORY: History of asthma with shortness of breath TECHNIQUE: Frontal and lateral views of the chest are obtained. FINDINGS: There is no focal air space opacity, pleural effusion, or pneumothorax seen. The cardiac silhouette size remains within normal limits. The osseous structures are intact. IMPRESSION: No acute process. No significant change from prior.
[2021-11-16 17:27] LABS: ALT 142 U/L (4-49); AST 101 U/L (17-59); African American GFR (CKD) >90 (>60 ml/min/1.73 sqM); Alkaline Phosphatase 42 U/L (38-126); Anion Gap 5 mmol/L; Blood Urea Nitrogen 17 mg/dL (9-20); Calcium 9.3 mg/dL (8.4-10.2); Carbon Dioxide 27 mmol/L (22-30); Chloride 106 mmol/L (98-107); Glucose 77 mg/dL (74-99); Magnesium 2.1 mg/dL (1.6-2.3); Non-African American GFR(CKD) >90 (>60 ml/min/1.73 sqM); Potassium 4.3 mmol/L (3.5-5.1); Sodium 138 mmol/L (137-145); Total Bilirubin 0.3 mg/dL (0.2-1.3); Total Protein 6.8 g/dL (6.3-8.2)
[2021-11-16 17:28] LABS: INR 0.9 (<1.2); Prothrombin Time 10.3 sec (9.0-12.0)
[2021-11-16 17:36] LABS: Basophils % (A) 0 %; Eosinophils # (A) 0.3 k/uL (0-0.7); Eosinophils % (A) 5 %; HCT 39.9 % (39.0-53.0); HGB 13.9 gm/dL (13.0-17.5); Lymphocytes # (A) 1.5 k/uL (1.0-4.8); Lymphocytes % (A) 27 %; MCH 30.2 pg (25.0-35.0); MCHC 34.9 g/dL (31.0-37.0); MCV 86.4 fL (80.0-100.0); Mean Platelet Volume 8.3; Monocytes # (A) 0.4 k/uL (0-1.0); Monocytes % (A) 8 %; Neutrophils # (A) 3.2 k/uL (1.3-7.7); Neutrophils % (A) 58 %; Platelet Count 215 k/uL (150-450); RBC 4.62 m/uL (4.30-5.90); RDW 13.4 % (11.5-15.5); WBC 5.5 k/uL (3.8-10.6)
[2021-11-16 20:22] LABS: Amorphous Sediment,Urine Moderate /hpf; Appearance,Urine Cloudy (Clear); Bilirubin,Urine Negative (Negative); Blood,Urine Negative (Negative); Color,Urine Yellow; Glucose,Urine (UA) Negative (Negative); Ketones,Urine Negative (Negative); Leukocyte Esterase,Urine Negative (Negative); Mucus,Urine Rare /hpf; Nitrite,Urine Negative (Negative); Protein,Urine Negative (Negative); RBC,Urine 1 /hpf (0-5); Urobilinogen,Urine <2.0 mg/dL (<2.0); WBC,Urine <1 /hpf (0-5)
--- NOTE | 2021-11-16 21:44 | ED ---
General Adult HPI - General Chief complaint: Shortness of Breath Stated complaint: Asthma/SOB/Discolored Urine Time Seen by Provider: 11/16/21 19:50 Source: patient, RN notes reviewed, old records reviewed Mode of arrival: ambulatory Limitations: no limitations - History of Present Illness Initial comments: Patient is a 31-year-old male who presents emergency Department with a four-day history of worsening cough, joint pain. Patient is also stating that his urine seems darker. States he is having some bruising over his body. No smoking past medical history except for asthma for which he uses a rescue inhaler infrequently. Denies any fevers or sick contacts. Did receive COVID-19 vaccines but no booster. Endorses a mild cough. Endorses rhinorrhea. Denies any nausea, vomiting, diarrhea. No other acute complaints at this time. Patient presents for further evaluation. I evaluated him after he was placed in a room. Workup was done in triage. - Related Data Home Medications Medication Instructions Recorded Confirmed Albuterol Inhaler [Ventolin Hfa 1 puff INHALATION RT-Q4H PRN 11/16/21 11/16/21 Inhaler] Previous Rx's Medication Instructions Recorded Albuterol Inhaler [Ventolin Hfa 1 puff INHALATION RT-TID #8 gm 11/16/21 Inhaler] Allergies Allergy/AdvReac Type Severity Reaction Status Date / Time No Known Allergies Allergy Verified 11/16/21 20:48 Review of Systems ROS Statement: Those systems with pertinent positive or pertinent negative responses have been documented in the HPI. Review of Systems: CONST: Denies fever EYES: Denies blurry vision ENT: Endorses nasal congestion C/V: Denies Chest pain RESP: Denies shortness of breath GI: Denies abdominal pain : Denies dysuria SKIN: Denies rash. MSK: Denies joint pain. NEURO: Denies headache ROS Other: All systems not noted in ROS Statement are negative. Past Medical History Past Medical History: Asthma, Pneumonia Additional Past Medical History / Comment(s): hep C, bulemia History of Any Multi-Drug Resistant Organisms: None Reported Past Surgical History: Appendectomy Past Psychological History: Depression Past Alcohol Use History: None Reported Past Drug Use History: Marijuana General Exam - General Exam Comments Initial Comments: General: Appears in no acute distress. HEAD: Normal with no signs of head trauma. EYES: PERRLA, EOMI, conjunctiva normal, no discharge. ENT: Hearing grossly intact, normal oropharynx. RESPIRATORY: Clear breath sounds bilaterally. No wheezes, rales, or rhonchi. No hypoxia. No increased work of breathing. C/V: Regular rate and rhythm. S1 and S2 auscultated, no edema, peripheral pulses 2+ and intact throughout ABD: Abd is soft, nontender, nondistended EXT: Normal range of motion, no obvious deformity SKIN: Scattered bruising of various ages on extremities. Patient does perform physical activity for work. No obvious injuries. NEURO: Alert and oriented 4. Limitations: no limitations Course Vital Signs 11/16/21 16:22 Temperature 98.2 F Pulse Rate 82 Respiratory 22 Rate Blood Pressure 129/84 O2 Sat by Pulse 97 Oximetry Medical Decision Making - Medical Decision Making Based on the patient's presentation and physical exam, I believe he is likely experiencing upper esterase symptoms for an illness. Cannot rule out Covid or flu at this time. Broad workup done in triage shows a negative d-dimer, negative troponin. Patient is mildly elevated AST and ALT. Urinalysis was unremarkable. Remainder of the labs are unremarkable. Chest x-ray shows no acute cardio primary process. EKG shows no acute ischemic process. I did recommend that we obtain a Covid and flu swabs. He was in agreement with this plan. Covid was positive. Flu was negative. I did the patient. He will be dis charged home with a perception for Paxlovid as well as albuterol inhaler. We discussed quarantine. He was in agreement this plan. Vital signs remained within normal limits and stable throughout his stay. I will provide the patient with a prescription for albuterol, Paxlovid. I instru cted the patient to follow up with their PCP in the next 3 days. I explained that the patient should return to the emergency department if they experience any worsening symptoms. Strict return precautions were discussed with the patient. The patient expressed understanding of these instructions. I answered all questions that the patient had. The patient was discharged home in good condition with their prescriptions and follow up information. - Lab Data Result diagrams: 11/16/21 16:46 11/16/21 16:46 Lab Results 11/16/21 11/16/21 11/16/21 Range/Units 16:46 16:46 16:46 WBC 5.5 (3.8-10.6) k/uL RBC 4.62 (4.30-5.90) m/uL Hgb 13.9 (13.0-17.5) gm/dL Hct 39.9 (39.0-53.0) % MCV 86.4 (80.0-100.0) fL MCH 30.2 (25.0-35.0) pg MCHC 34.9 (31.0-37.0) g/dL RDW 13.4 (11.5-15.5) % Plt Count 215 (150-450) k/uL MPV 8.3 Neutrophils % 58 % Lymphocytes % 27 % Monocytes % 8 % Eosinophils % 5 % Basophils % 0 % Neutrophils # 3.2 (1.3-7.7) k/uL Lymphocytes # 1.5 (1.0-4.8) k/uL Monocytes # 0.4 (0-1.0) k/uL Eosinophils # 0.3 (0-0.7) k/uL Basophils # 0.0 (0-0.2) k/uL PT 10.3 (9.0-12.0) sec INR 0.9 (<1.2) APTT 23.0 (22.0-30.0) sec D-Dimer <0.17 (<0.60) mg/L FEU Sodium 138 (137-145) mmol/L Potassium 4.3 (3.5-5.1) mmol/L Chloride 106 (98-107) mmol/L Carbon Dioxide 27 (22-30) mmol/L Anion Gap 5 mmol/L BUN 17 (9-20) mg/dL Creatinine 0.89 (0.66-1.25) mg/dL Est GFR (CKD-EPI)AfAm >90 (>60 ml/min/1.73 sqM) Est GFR (CKD-EPI)NonAf >90 (>60 ml/min/1.73 sqM) Glucose 77 (74-99) mg/dL Calcium 9.3 (8.4-10.2) mg/dL Magnesium 2.1 (1.6-2.3) mg/dL Total Bilirubin 0.3 (0.2-1.3) mg/dL AST 101 H (17-59) U/L ALT 142 H (4-49) U/L Alkaline Phosphatase 42 (38-126) U/L Troponin I (0.000-0.034) ng/mL Total Protein 6.8 (6.3-8.2) g/dL Albumin 4.0 (3.5-5.0) g/dL Urine Color Urine Appearance (Clear) Urine pH (5.0-8.0) Ur Specific [place] (1.001-1.035) Urine Protein (Negative) Urine Glucose (UA) (Negative) Urine Ketones (Negative) Urine Blood (Negative) Urine Nitrite (Negative) Urine Bilirubin (Negative) Urine Urobilinogen (<2.0) mg/dL Ur Leukocyte Esterase (Negative) Urine RBC (0-5) /hpf Urine WBC (0-5) /hpf Amorphous Sediment (None) /hpf Urine Mucus (None) /hpf Coronavirus (PCR) (Not Detectd) Influenza Type A RNA (Not Detectd) Influenza Type B (PCR) (Not Detectd) 11/16/21 11/16/21 11/16/21 Range/Units 16:46 20:00 20:00 WBC (3.8-10.6) k/uL RBC (4.30-5.90) m/uL Hgb (13.0-17.5) gm/dL Hct (39.0-53.0) % MCV (80.0-100.0) fL MCH (25.0-35.0) pg MCHC (31.0-37.0) g/dL RDW (11.5-15.5) % Plt Count (150-450) k/uL MPV Neutrophils % % Lymphocytes % % Monocytes % % Eosinophils % % Basophils % % Neutrophils # (1.3-7.7) k/uL Lymphocytes # (1.0-4.8) k/uL Monocytes # (0-1.0) k/uL Eosinophils # (0-0.7) k/uL Basophils # (0-0.2) k/uL PT (9.0-12.0) sec INR (<1.2) APTT (22.0-30.0) sec D-Dimer (<0.60) mg/L FEU Sodium (137-145) mmol/L Potassium (3.5-5.1) mmol/L Chloride (98-107) mmol/L Carbon Dioxide (22-30) mmol/L Anion Gap mmol/L BUN (9-20) mg/dL Creatinine (0.66-1.25) mg/dL Est GFR (CKD-EPI)AfAm (>60 ml/min/1.73 sqM) Est GFR (CKD-EPI)NonAf (>60 ml/min/1.73 sqM) Glucose (74-99) mg/dL Calcium (8.4-10.2) mg/dL Magnesium (1.6-2.3) mg/dL Total Bilirubin (0.2-1.3) mg/dL AST (17-59) U/L ALT (4-49) U/L Alkaline Phosphatase (38-126) U/L Troponin I <0.012 (0.000-0.034) ng/mL Total Protein (6.3-8.2) g/dL Albumin (3.5-5.0) g/dL Urine Color Yellow Urine Appearance Cloudy (Clear) Urine pH 7.0 (5.0-8.0) Ur Specific [place] 1.020 (1.001-1.035) Urine Protein Negative (Negative) Urine Glucose (UA) Negative (Negative) Urine Ketones Negative (Negative) Urine Blood Negative (Negative) Urine Nitrite Negative (Negative) Urine Bilirubin Negative (Negative) Urine Urobilinogen <2.0 (<2.0) mg/dL Ur Leukocyte Esterase Negative (Negative) Urine RBC 1 (0-5) /hpf Urine WBC <1 (0-5) /hpf Amorphous Sediment Moderate H (None) /hpf Urine Mucus Rare H (None) /hpf Coronavirus (PCR) Detected A (Not Detectd) Influenza Type A RNA (Not Detectd) Influenza Type B (PCR) (Not Detectd) 11/16/21 Range/Units 20:00 WBC (3.8-10.6) k/uL RBC (4.30-5.90) m/uL Hgb (13.0-17.5) gm/dL Hct (39.0-53.0) % MCV (80.0-100.0) fL MCH (25.0-35.0) pg MCHC (31.0-37.0) g/dL RDW (11.5-15.5) % Plt Count (150-450) k/uL MPV Neutrophils % % Lymphocytes % % Monocytes % % Eosinophils % % Basophils % % Neutrophils # (1.3-7.7) k/uL Lymphocytes # (1.0-4.8) k/uL Monocytes # (0-1.0) k/uL Eosinophils # (0-0.7) k/uL Basophils # (0-0.2) k/uL PT (9.0-12.0) sec INR (<1.2) APTT (22.0-30.0) sec D-Dimer (<0.60) mg/L FEU Sodium (137-145) mmol/L Potassium (3.5-5.1) mmol/L Chloride (98-107) mmol/L Carbon Dioxide (22-30) mmol/L Anion Gap mmol/L BUN (9-20) mg/dL Creatinine (0.66-1.25) mg/dL Est GFR (CKD-EPI)AfAm (>60 ml/min/1.73 sqM) Est GFR (CKD-EPI)NonAf (>60 ml/min/1.73 sqM) Glucose (74-99) mg/dL Calcium (8.4-10.2) mg/dL Magnesium (1.6-2.3) mg/dL Total Bilirubin (0.2-1.3) mg/dL AST (17-59) U/L ALT (4-49) U/L Alkaline Phosphatase (38-126) U/L Troponin I (0.000-0.034) ng/mL Total Protein (6.3-8.2) g/dL Albumin (3.5-5.0) g/dL Urine Color Urine Appearance (Clear) Urine pH (5.0-8.0) Ur Specific [place] (1.001-1.035) Urine Protein (Negative) Urine Glucose (UA) (Negative) Urine Ketones (Negative) Urine Blood (Negative) Urine Nitrite (Negative) Urine Bilirubin (Negative) Urine Urobilinogen (<2.0) mg/dL Ur Leukocyte Esterase (Negative) Urine RBC (0-5) /hpf Urine WBC (0-5) /hpf Amorphous Sediment (None) /hpf Urine Mucus (None) /hpf Coronavirus (PCR) (Not Detectd) Influenza Type A RNA Not Detected (Not Detectd) Influenza Type B (PCR) Not Detected (Not Detectd) - EKG Data -: EKG Interpreted by Tx EKG Comments: 12-lead Electrocardiogram Interpretation Note EKG was reviewed and interpreted by myself. 12-lead ECG performed at 1645 is interpreted by me as revealing normal sinus rhythm at a rate of 73 beats per minute. [place] is normal. ID intervals 142 ms, QRS duration is 97 ms, QTc is 391 ms.. There were no ST or T wave abnormalities to suggest myocardial ischemia or injury. R wave progression across the precordium was delayed. By my interpretation this EKG is non-diagnostic for acute ischemia. Disposition Clinical Impression: COVID-19 Disposition: HOME SELF-CARE Condition: Good Instructions (If sedation given, give patient instructions): COVID-19 (Coronavirus Disease 2019) (ED) Prescriptions: Albuterol Inhaler [Ventolin Hfa Inhaler] 1 puff INHALATION RT-TID #8 gm Is patient prescribed a controlled substance at d/c from ED?: No Referrals: Jamil Archibald MD [Primary Care Provider] - 1-2 days Time of Disposition: 21:35
== END 2021-11-16 21:45 | disposition home or self-care (01) ==
LOC: EC 15:52
DX: U07.1 COVID-19 (principal); R74.01 Elevation of levels of liver transaminase levels; J45.909 Unspecified asthma, uncomplicated
CPT/HCPCS: 36415; 71046; 80053; 81001; 83735; 84484; 85025; 85379; 85610; 85730; 87502; 87635; 93005; 99285

== ENCOUNTER 2023-08-24 07:23 | Emergency (ER) | payer OTHER ==
--- NOTE | 2023-08-24 08:05 | ED ---
General Adult HPI - General Chief complaint: Headache Stated complaint: Headache after vomiting Time Seen by Provider: 08/24/23 07:36 Source: patient, RN notes reviewed, old records reviewed Mode of arrival: ambulatory Limitations: no limitations - History of Present Illness Initial comments: 33-year-old male presents for evaluation of headache. Headache began at approximately 10 PM last night after an episode of vomiting. Patient states this was relatively sudden in onset and states that medications at home have not alleviated his pain. He has no significant headache history. He is otherwise healthy no daily medications. Denies focal numbness or weakness. Denies persistent vomiting. The initial episode of vomiting came after eating and he believes it was related to the food. - Related Data Home Medications Medication Instructions Recorded Confirmed Albuterol Inhaler [Ventolin Hfa 1 puff INHALATION RT-Q4H PRN 11/16/21 11/16/21 Inhaler] Previous Rx's Medication Instructions Recorded Albuterol Inhaler [Ventolin Hfa 1 puff INHALATION RT-TID #8 gm 11/16/21 Inhaler] Allergies Allergy/AdvReac Type Severity Reaction Status Date / Time No Known Allergies Allergy Verified 08/24/23 07:32 Review of Systems ROS Statement: Those systems with pertinent positive or pertinent negative responses have been documented in the HPI. ROS Other: All systems not noted in ROS Statement are negative. Past Medical History Past Medical History: Asthma, Pneumonia Additional Past Medical History / Comment(s): hep C, History of Any Multi-Drug Resistant Organisms: None Reported Past Surgical History: Appendectomy Past Psychological History: Depression Smoking Status: Current every day smoker, Vaper Past Alcohol Use History: None Reported General Exam Limitations: no limitations General appearance: alert, in no apparent distress Head exam: Present: atraumatic, normocephalic Eye exam: Present: normal appearance, PERRL ENT exam: Present: normal exam Neck exam: Present: normal inspection. Absent: tenderness, meningismus Respiratory exam: Present: normal lung sounds bilaterally. Absent: respiratory distress, wheezes Cardiovascular Exam: Present: regular rate, normal rhythm GI/Abdominal exam: Present: soft. Absent: distended, tenderness Extremities exam: Present: normal inspection, normal capillary refill Neurological exam: Present: alert, oriented X3, CN II-XII intact, other (Patient using cell phone). Absent: motor sensory deficit Psychiatric exam: Present: normal affect, normal mood Skin exam: Present: warm, dry, intact Course Vital Signs 08/24/23 08/24/23 07:29 09:13 Temperature 97.6 F 97.8 F Pulse Rate 78 66 Respiratory 18 16 Rate Blood Pressure 130/84 119/75 O2 Sat by Pulse 99 100 Oximetry Medical Decision Making - Medical Decision Making Was pt. sent in by a medical professional or institution (, PA, GRAIN I FARMWORKER, urgent care, hospital, or long-term...) When possible be specific @ -No Did you speak to anyone other than the patient for history (EMS, parent, family, police, friend...)? What history was obtained from this source @ -No Did you review nursing and triage notes (agree or disagree)? Why? @ -I reviewed and agree with nursing and triage notes Were old charts reviewed (outside hosp., previous admission, EMS record, old EKG, old radiological studies, urgent care reports/EKG's, long-term records)? Report findings @ -No old charts were reviewed Differential Diagnosis (chest pain, altered mental status, abdominal pain women, abdominal pain men, vaginal bleeding, weakness, fever, dyspnea, syncope, headache, dizziness, GI bleed, back pain, seizure, CVA, palpatations, mental health, musculoskeletal)? @Differential Headache: Migraine, tension, cluster, carbon monoxide, central venous thrombosis, pension karma temporal arteritis, acute closure glaucoma, intercranial hemorrhage, mastoiditis, sinusitis, head injury, this is not meant to be an all-inclusive list. EKG interpreted by me (3pts min.). @ -As above X-rays interpreted by me (1pt min.). @ -None done CT interpreted by me (1pt min.). @ -[CT brain without contrast, negative for intracranial hemorrhage or mass effect, CT angiogram of [facility] [place] negative for aneurysmal change or acute findings. U/S interpreted by me (1pt. min.). @ -None done What testing was considered but not performed or refused? (CT, X-rays, U/S, labs)? Why? @ -None What meds were considered but not given or refused? Why? @ -None Did you discuss the management of the patient with other professionals (professionals i.e. , INDRA, GRAIN I FARMWORKER, lab, RT, psych nurse, hospital social worker, rubber stamp dies inspector, teacher, juvenile detention officer, supportive employment case manager)? Give summary @ -No Was smoking cessation discussed for >3mins.? @ -No Was critical care preformed (if so, how long)? @ -No Were there social determinants of health that impacted care today? How? (Homelessness, low income, unemployed, alcoholism, drug addiction, transportation, low edu. Level, literacy, decrease access to med. care, prison, rehab)? @ -No Was there de-escalation of care discussed even if they declined (Discuss DNR or withdrawal of care, Hospice)? DNR status @ -No What co-morbidities impacted this encounter? (DM, HTN, Smoking, COPD, CAD, Cancer, CVA, ARF, Chemo, Hep., AIDS, mental health diagnosis, sleep apnea, morbid obesity)? @ -None Was patient admitted / discharged? Hospital course, mention meds given and route, prescriptions, significant lab abnormalities, going to OR and other pertinent info. @ -33-year-old male with headache during vomiting. There was concern for subarachnoid hemorrhage, CT and CT angiography was obtained which was unremarkable. Patient given IV fluids, Tylenol and Toradol after CT read. Patient has normal CBC, normal CMP, stable for discharge at this time. Undiagnosed new problem with uncertain prognosis? @ -No Drug Therapy requiring intensive monitoring for toxicity (Heparin, Nitro, Insulin, Cardizem)? @ -No Were any procedures done? @ -No Diagnosis/symptom? @ -Headache Acute, or Chronic, or Acute on Chronic? @ -Acute Uncomplicated (without systemic symptoms) or Complicated (systemic symptoms)? @ -Default Side effects of treatment? @ -No Exacerbation, Progression, or Severe Exacerbation? @ -No Poses a threat to life or bodily function? How? (Chest pain, [place], [place], pneumonia, PE, COPD, DKA, ARF, appy, cholecystitis, CVA, Diverticulitis, Homicidal, Suicidal, threat to staff... and all critical care pts) @ -[Low risk at this time - Lab Data Result diagrams: 08/24/23 07:53 08/24/23 07:53 Lab Results 08/24/23 08/24/23 Range/Units 07:53 07:53 WBC 8.4 (3.8-10.6) k/uL RBC 4.86 (4.30-5.90) m/uL Hgb 14.8 (13.0-17.5) gm/dL Hct 43.0 (39.0-53.0) % MCV 88.5 (80.0-100.0) fL MCH 30.4 (25.0-35.0) pg MCHC 34.3 (31.0-37.0) g/dL RDW 12.8 (11.5-15.5) % Plt Count 218 (150-450) k/uL MPV 7.6 Neutrophils % 73 % Lymphocytes % 17 % Monocytes % 6 % Eosinophils % 3 % Basophils % 0 % Neutrophils # 6.1 (1.3-7.7) k/uL Lymphocytes # 1.4 (1.0-4.8) k/uL Monocytes # 0.5 (0-1.0) k/uL Eosinophils # 0.2 (0-0.7) k/uL Basophils # 0.0 (0-0.2) k/uL Sodium 139 (137-145) mmol/L Potassium 4.3 (3.5-5.1) mmol/L Chloride 105 (98-107) mmol/L Carbon Dioxide 28 (22-30) mmol/L Anion Gap 6 mmol/L BUN 15 (9-20) mg/dL Creatinine 0.77 (0.66-1.25) mg/dL Est GFR (CKD-EPI)AfAm >90 (>60 ml/min/1.73 sqM) Est GFR (CKD-EPI)NonAf >90 (>60 ml/min/1.73 sqM) Glucose 101 H (74-99) mg/dL Calcium 9.3 (8.4-10.2) mg/dL Total Bilirubin 0.6 (0.2-1.3) mg/dL AST 45 (17-59) U/L ALT 86 H (4-49) U/L Alkaline Phosphatase 56 (38-126) U/L Total Protein 7.3 (6.3-8.2) g/dL Albumin 4.2 (3.5-5.0) g/dL Disposition Clinical Impression: Headache Disposition: HOME SELF-CARE Condition: Good Instructions (If sedation given, give patient instructions): Acute Headache (ED) Is patient prescribed a controlled substance at d/c from ED?: No Referrals: Jamil Archibald MD [Primary Care Provider] - 1-2 days Time of Disposition: 09:32
[2023-08-24] MEDS: SODIUM CHLORIDE 0.9% 1,000 ML IV ONE (08:07)
[2023-08-24 08:10] LABS: Basophils % (A) 0 %; Eosinophils # (A) 0.2 k/uL (0-0.7); Eosinophils % (A) 3 %; HGB 14.8 gm/dL (13.0-17.5); Lymphocytes # (A) 1.4 k/uL (1.0-4.8); Lymphocytes % (A) 17 %; MCH 30.4 pg (25.0-35.0); MCHC 34.3 g/dL (31.0-37.0); MCV 88.5 fL (80.0-100.0); Mean Platelet Volume 7.6; Monocytes # (A) 0.5 k/uL (0-1.0); Monocytes % (A) 6 %; Neutrophils # (A) 6.1 k/uL (1.3-7.7); Neutrophils % (A) 73 %; Platelet Count 218 k/uL (150-450); RBC 4.86 m/uL (4.30-5.90); RDW 12.8 % (11.5-15.5); WBC 8.4 k/uL (3.8-10.6)
[2023-08-24 08:21] LABS: ALT 86 U/L (4-49); AST 45 U/L (17-59); African American GFR (CKD) >90 (>60 ml/min/1.73 sqM); Albumin 4.2 g/dL (3.5-5.0); Alkaline Phosphatase 56 U/L (38-126); Anion Gap 6 mmol/L; Blood Urea Nitrogen 15 mg/dL (9-20); Calcium 9.3 mg/dL (8.4-10.2); Carbon Dioxide 28 mmol/L (22-30); Chloride 105 mmol/L (98-107); Glucose 101 mg/dL (74-99); Non-African American GFR(CKD) >90 (>60 ml/min/1.73 sqM); Potassium 4.3 mmol/L (3.5-5.1); Sodium 139 mmol/L (137-145); Total Bilirubin 0.6 mg/dL (0.2-1.3); Total Protein 7.3 g/dL (6.3-8.2)
[2023-08-24] MEDS: ACETAMINOPHEN IV (For NPO) 1,000 MG in EMPTY BAG 1 BAG IVPB STA (08:49)
--- NOTE | 2023-08-24 09:18 | CT ---
EXAMINATION TYPE: CT [place] CT DLP: 737.5 mGycm, Automated exposure control for dose reduction was used. DATE OF EXAM: 08/24/2023 8:48 AM COMPARISON: CT brain same day.. CLINICAL INDICATION:Male, 33 years old with history of GARCIA severe/sudden; PHH, Headache after vomiting , sudden and severe TECHNIQUE: CT [place] Axially acquired helical CT angiogram was obtained. Axial im ages are supplemented with 3D reconstructions which were post-processed at an independent workstation . NASCET criteria used. Contrast used:100 ml mL of Isovue 300 with IV Contrast, none Oral contrast used: none FINDINGS: Vertebral arteries: The vertebral arteries are patent. Vertebral artery dominance: Codominant Basilar artery: The basilar artery is intact. The basilar artery bifurcation is normal. Internal Carotid arteries: The cervical, petrous, cavernous and supraclinoid segments are normal. ANGI: Patent with no evidence of aneurysm. ACOM: Present without evidence of aneurysm. MCA: Patent with no evidence of aneurysm. PHYSICAL THERAPY PROFESSOR: Patent with no evidence of aneurysm. PCOM: Hypoplastic bilaterally. Dural sinuses: Patent. IMPRESSION: No evidence of high-grade stenosis or intracranial aneurysm.
--- NOTE | 2023-08-24 09:20 | CT ---
EXAMINATION TYPE: CT brain wo con CT DLP: 1138.1 mGycm, Automated exposure control for dose reduction was used. DATE OF EXAM: 08/24/2023 8:47 AM COMPARISON: 08/31/2018. CLINICAL INDICATION:Male, 33 years old with history of GARCIA, Headache after vomiting, sudden and severe TECHNIQUE: Brain: Axial CT images of the brain were obtained with coronal and sagittal reformats created and rev iewed. Contrast used: None. Oral contrast used: None. FINDINGS: Brain: Extra-axial spaces: No abnormal extra-axial fluid collections. Ventricular system: Within normal limits Cerebral parenchyma: No acute intraparenchymal hemorrhage or mass effect. The thomas-white junction is well differentiated. Cerebellum: Unremarkable. Mass effect: No evidence of midline shift. Intracranial vasculature: unremarkable Soft tissues: Normal. Calvarium/osseous structures: No depressed skull fracture. Paranasal sinuses and mastoid air cells: Mild scattered paranasal sinus disease Visualized orbits: Orbital contents are intact. IMPRESSION: No acute intracranial process.
[2023-08-24 09:25] VITALS: BP 119/75; PULSE 66; RESP 16; TEMP 97.8
[2023-08-24] MEDS: KETOROLAC 15 MG/ML 1 ML VIAL IVP STA (09:41)
== END 2023-08-24 09:39 | disposition home or self-care (01) ==
LOC: EC 07:23
DX: R51.9 Headache, unspecified (principal); J45.909 Unspecified asthma, uncomplicated; F17.290 Nicotine dependence, other tobacco product, uncomplicated; Z86.59 Personal history of other mental and behavioral disorders; Z79.899 Other long term (current) drug therapy
CPT/HCPCS: 36415; 80053; 85025; 70496; 70450; 99284; 96374; 96375; 96361 ×2; J0131; J1885; Q9967